=== PATIENT | male | born 1995 | race Caucasian/White ===

== ENCOUNTER 2017-04-18 00:53 | Emergency (ER) | payer OTHER ==
[~2017-04-18] VITALS: Ht 180.3 cm; Wt 81.3 kg
[2017-04-18 00:57] VITALS: TEMP 36.4; Ht 180.3 cm; Wt 81.3 kg
[2017-04-18 02:03] LABS: BUN/CREATININE RATIO 15.7 (10-20); CALCIUM 8.5 mg/dl (8.5-10.1); POTASSIUM 3.4 mmol/L (3.5-5.1)
[2017-04-18 03:51] VITALS: BP 146/83; PULSE 83; O2SAT 100
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
== END 2017-04-18 03:53 | disposition home or self-care (01) ==
LOC: C.EDB 00:56
DX: F10.120 Alcohol abuse with intoxication, uncomplicated (principal)

== ENCOUNTER 2017-09-17 16:04 | Emergency (ER) | payer OTHER ==
[~2017-09-17] VITALS: Ht 180.3 cm; Wt 87.0 kg
[2017-09-17 16:05] VITALS: TEMP 36.8; Ht 180.3 cm; Wt 87.0 kg
[2017-09-17 17:18] LABS: BASO % 0.2 %; BASO ABS # 0.02 K/uL (0-0.2); EOS % 0.8 %; EOS ABS # 0.08 K/uL (0-0.5); HEMATOCRIT 41.5 % (42-52); HEMOGLOBIN 14.7 g/dL (14.0-18.0); IG# 0.02 K/uL (0.00-0.02); LYMPH % 28.4 %; LYMPH ABS # 3.01 K/uL (1.2-3.4); MEAN CELL VOLUME 89.4 fL (80-100); MEAN CORPUSCULAR HEMOGLOBIN 31.7 pg (25-34); MEAN CORPUSCULAR HGB CONC 35.4 g/dl (32-36); MEAN PLATELET VOLUME 10.9 fL (7.4-10.4); MONO ABS # 1.17 K/uL (0.11-0.59); NEUT % 59.4 %; NEUT ABS # 6.31 K/uL (1.4-6.5); PLATELET COUNT 272 K/uL (130-400); RED CELL DISTRIBUTION WIDTH CV 12.8 % (11.5-14.5); RED CELL DISTRIBUTION WIDTH SD 41.7 fL (36.4-46.3); WHITE BLOOD COUNT 10.61 K/uL (4.8-10.8)
[2017-09-17 17:41] LABS: ALBUMIN 4.3 gm/dl (3.4-5.0); CALCIUM 8.8 mg/dl (8.5-10.1); POTASSIUM 3.8 mmol/L (3.5-5.1)
[2017-09-17] MEDS ORDERED: PARO1TAB29 PO (17:55)
--- NOTE | 2017-09-17 19:36 | DIAGNOSTIC IMAGING REPORT ---
CT SCAN OF THE BRAIN WITHOUT IV CONTRAST CLINICAL HISTORY: Abrasion. COMPARISON STUDY: CT of the brain dated 07/30/2017. TECHNIQUE: Unenhanced axial CT scan of the brain is performed from the vertex to the skull base. A dose lowering technique was utilized adhering to the principles of ALARA. CT DOSE: 712.55 mGy.cm FINDINGS: Brain parenchyma: The brain parenchyma is normal in appearance. There is no hemorrhage, mass effect, or evidence of acute territorial ischemia by CT criteria. Sutton-white matter is preserved. No extra-axial fluid collection is seen. Ventricles, sulci, cisterns: Normal in configuration. Intracranial vasculature: The visualized intracranial vasculature at the skull base is normal in appearance. Calvarium: There is no depressed calvarial fracture. Sinuses and mastoids: The visualized paranasal sinuses are clear. The mastoid air cells are well pneumatized. Orbits: The bony orbits are grossly intact. IMPRESSION: No acute intracranial abnormality. Electronically signed by: Francis Chi M.D. 09/17/2017 7:35 PM Dictated Date/Time: 09/17/2017 7:33 PM
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
[2017-09-18 01:23] VITALS: BP 129/68; PULSE 81; O2SAT 100
== END 2017-09-18 01:24 ==
LOC: C.EDA 16:06
DX: F39 Unspecified mood [affective] disorder (principal); R45.851 Suicidal ideations; F14.10 Cocaine abuse, uncomplicated; F12.10 Cannabis abuse, uncomplicated; F10.10 Alcohol abuse, uncomplicated; F13.10 Sedative, hypnotic or anxiolytic abuse, uncomplicated; F17.200 Nicotine dependence, unspecified, uncomplicated; S60.311A Abrasion of right thumb, initial encounter; S60.011A Contusion of right thumb without damage to nail, initial encounter; W22.09XA Striking against other stationary object, initial encounter; S00.81XA Abrasion of other part of head, initial encounter; X58.XXXA Exposure to other specified factors, initial encounter; R00.0 Tachycardia, unspecified

== ENCOUNTER 2017-12-13 15:10 | Emergency (ER) | payer OTHER ==
[~2017-12-13] VITALS: Ht 180.3 cm; Wt 95.8 kg
[~2017-12-13 15:10] MED LIST: PARO1TAB29 PO
[2017-12-13 15:15] VITALS: TEMP 36.8; Ht 180.3 cm; Wt 95.8 kg
--- NOTE | 2017-12-13 15:55 | DIAGNOSTIC IMAGING REPORT ---
R ANKLE MIN 3 VIEWS ROUTINE CLINICAL HISTORY: 22 years-old Male presenting with right ankle injury. TECHNIQUE: Frontal, mortise, and lateral views of the right ankle were obtained. COMPARISON: None. FINDINGS: Ankle mortise intact. No acute fracture or malalignment. No advanced degenerative change. No radiographic soft tissue abnormality. IMPRESSION: No acute osseous injury. Electronically signed by: Severiano Alexis M.D. 12/13/2017 3:54 PM Dictated Date/Time: 12/13/2017 3:53 PM
[2017-12-13] MEDS ORDERED: TRAZ50TA35 PO (17:48)
[2017-12-13] MEDS ORDERED: OXCA300T PO (17:48)
[2017-12-13] MEDS ORDERED: ESCI1TAB10 PO (17:48)
[2017-12-13 20:08] VITALS: BP 121/68; PULSE 78; O2SAT 98
--- NOTE | 2017-12-13 22:18 | EMERGENCY ROOM VISIT NOTE ---
History First contact with patient: 15:19 Chief Complaint: ANKLE PAIN Stated Complaint: RIGHT FOOT PAIN History of Present Illness The patient is a 22 year old male who presents to the Emergency Room with complaints of right ankle injury that occurred about 12 hours ago. Evidently the patient was out drinking last night, twisted his ankle, and injured his right ankle. The patient does not report previous injury to the ankle. He has been able to walk despite the injury. The patient does not report additional symptoms and rates his discomfort a 4/10. Additional information regarding the visit was provided to me by the patient's family. Evidently the patient was at home today, and left the house. He was missing for several hours and police were contacted. Police were unable to identify the location of the patient, but he was ultimately found by his parents sleeping outside of a gas station. The patient had urinated himself and smelled of alcohol. The patient has a long -standing history of drug use, and admits to abusing Xanax. The patient has an extensive mental health history but denies suicidal or homicidal ideation. His only complaint today is his ankle despite the surrounding circumstances. He does not wish for mental health evaluation and declines all medical intervention other than x-rays for his ankle. Review of Systems More than 10 systems were reviewed and otherwise negative with the exception of history of present illness. Past Medical/Surgical History Medical Problems: (1) No chronic problems Family History Patient reports no known family medical history. Social History Smoking Status: Current Every Day Smoker Alcohol Use: occasionally Drug Use: cocaine, marijuana, other Marital Status: single Housing Status: lives with roommate Occupation Status: [employer] student Current/Historical Medications Scheduled Escitalopram Oxalate (Lexapro), 30 MG PO QAM Oxcarbazepine (Trileptal), 300 MG PO BID Scheduled PRN Trazodone Hcl (Trazodone), 50 MG PO HS PRN for Sleep Physical Exam Vital Signs Date Time Temp Pulse Resp B/P (MAP) Pulse Ox O2 Delivery O2 Flow Rate FiO2 12/13/17 20:08 78 16 121/68 98 12/13/17 19:41 78 16 121/68 98 Room Air 12/13/17 17:24 89 16 97 Room Air 12/13/17 15:15 36.8 95 16 132/80 100 Room Air Physical Exam VITALS: Vitals are noted on the nurse's note and reviewed by myself. Vital signs stable. GENERAL: Well-developed, well-nourished, white male who appears mildly intoxicated. His words are slow but clear. He does not appear significantly altered. He is cooperative with the examination. EYES: Pupils equal round and reactive to light and accommodation. Conjunctivae without injection, sclerae without icterus. Extraocular movements intact. NOSE: Patent, turbinates without inflammation or discharge. MOUTH: Mucous membranes moist. Tonsils are not enlarged. Pharynx without erythema, blood, or exudate. Uvula midline. Airway patent. NECK: Supple without nuchal rigidity. No lymphadenopathy. No thyromegaly. Cervical spine is nontender. HEART: Regular rate and rhythm without murmurs gallops or rubs. LUNGS: Clear to auscultation bilaterally without wheezes, rales or rhonchi. No retractions or accessory muscle use. MUSCULOSKELETAL: There is notable ecchymosis and edema of the right lateral ankle. No significant tenderness along the medial aspect, however there is tenderness on the lateral aspect. No MTP tenderness. Neurovascular status is intact distally. The patient is with full range of motion and is able to ambulate without a limp Medical Decision & Procedures ER Provider Diagnostic Interpretation: R ANKLE MIN 3 VIEWS ROUTINE CLINICAL HISTORY: 22 years-old Male presenting with right ankle injury. TECHNIQUE: Frontal, mortise, and lateral views of the right ankle were obtained. COMPARISON: None. FINDINGS: Ankle mortise intact. No acute fracture or malalignment. No advanced degenerative change. No radiographic soft tissue abnormality. IMPRESSION: No acute osseous injury. ED Course Physical exam and history were performed. Nursing notes, EMR, and Medication List were personally reviewed. Patient appears to have injured his ankle last evening. The patient has an extensive history of drug and alcohol abuse. He evidently has been using more than normal according to the family, however the patient declines all intervention or services for this. He will consent to x-ray, which was performed. X-ray was reviewed by myself and radiology as showing no acute fracture or dislocation. The patient was placed in an Kory wrap for comfort. While the patient was being evaluated his family did arrive and provided the additional HPI as above. They requested that we keep him here in the hospital for alcohol and drug services. I discussed the case with case management, who further discussed options of care with the family. At this time the patient has not made any suicidal or homicidal statements or overtures. He does not appear to meet any criteria for 302 admission. As the patient returned from x-ray he was tired and wanted to sleep. The patient was able to rest here in the ER very comfortably throughout the remainder of his stay. I did have a lengthy conversation with the patient upon him waking, and offered full resources for mental health evaluation, as well as drug and alcohol services. The patient flatly declined this. He appears to be capable of making these decisions himself, and as such I have no further options of care for the patient. He is content with this and does request discharge home. The patient was given information as below and discharged home under the care of his father. The chart was completed utilizing [employer] Speech Voice Recognition Software. Grammatical errors, random word insertions, pronoun errors, and incomplete sentences are an occasional consequence of this system due to software limitations, ambient noise, and hardware issues. Any formal questions or concerns about the content, text, or information contained within the body of this dictation should be directly addressed to the provider for clarification. . Medical Decision Differential diagnosis includes, but is not limited to: Sprain, strain, fracture , dislocation, subluxation, contusion, mental health disease, drug and alcohol abuse, and others Impression Primary Impression: Injury of right ankle Departure Information Dispostion Home / Self-Care Condition GOOD Forms HOME CARE DOCUMENTATION FORM, IMPORTANT VISIT INFORMATION Patient Instructions [facility] Additional Instructions You were seen and evaluated today on an emergency basis only. This is not a substitute for, or an effort to provide, complete comprehensive medical care. It is not possible to recognize and treat all injuries or illnesses in a single emergency department visit. For this reason it is recommended that you followup with your primary care physician this week for ongoing care and evaluation. Please seek help for alcohol and drug rehabilitation services. For baseline pain relief you may alternate ibuprofen and acetaminophen every 4 hours for pain control. Take 600 mg ibuprofen (Advil) and then 4 hours later take 1000 mg acetaminophen (Tylenol). Do not take more than 3000 mg acetaminophen in a single day. Wear your Kory wrap for comfort. You are welcome to return to the emergency department anytime with new, worsening, or concerning symptoms.
== END 2017-12-13 20:09 | disposition home or self-care (01) ==
LOC: C.EDB 15:12 → C.EDA 20:09
DX: S99.911A Unspecified injury of right ankle, initial encounter (principal); X50.0XXA Overexertion from strenuous movement or load, initial encounter; F17.200 Nicotine dependence, unspecified, uncomplicated; F12.90 Cannabis use, unspecified, uncomplicated; F14.90 Cocaine use, unspecified, uncomplicated; F13.10 Sedative, hypnotic or anxiolytic abuse, uncomplicated